=== PATIENT | male | born 1965 | race Caucasian/White ===

== ENCOUNTER → 2016-07-07 | Outpatient (CLI) | payer BC ==
--- NOTE | 2016-07-07 19:35 | PN ---
DATE OF SERVICE: 07/07/2016 This patient is a 50-year-old gentleman who has been followed in the sleep center for treatment of obstructive sleep apnea/hypopnea syndrome. Patient continues to use his equipment every night without significant problems, although he mentioned that he received nasal pillows which do not fit well to his nostrils; when he changed them, they work well. I checked his BiPAP unit. BiPAP pressure is 14/10 cm of water. Patient is using equipment basically 100% of the time for more than 4 hours; average usage 7.0 hours. Leak is up to 25 L/minute, which is acceptable. Apnea-hypopnea index is only 0.6 for the last month. [place] Sleepiness Scale is 7. MEDICATIONS: 1. Synthroid. 2. Toprol. 3. Baby aspirin. PHYSICAL EXAMINATION: Patient in no distress. VITAL SIGNS: BP 149/84, HR 76, RR 16. Height 5 feet 8 inches. Weight 271. BMI 41.3. Neck 19 inches in circumference. Temperature 98.0. Oxygen saturation at room air 98%. HEENT: PERRLA, EOMI. Evaluation of oropharynx showed tongue protrudes midline; extremely low position of soft palate. NECK: Supple. No JVD. Thyroid is not palpable. LUNGS: Clear to percussion and to auscultation. Good air exchange. No wheezing or rhonchi. HEART: S1, S2 regular. No murmurs, gallops or rubs. ABDOMEN: Obese. EXTREMITIES: No clubbing or cyanosis. FOUNTAIN SUPERVISOR: Awake, alert, and oriented x3. Cranial nerves 2 to 7 intact. There is no fasciculation or atrophy noted. No focal deficits observed. IMPRESSION: 1. Obstructive sleep apnea-hypopnea syndrome, under full control with BiPAP at 14/10 cm of water. Patient demonstrated 100% compliance with treatment, benefitting from treatment. 2. Obesity. Patient's weight has increased by 14 pounds since his previous visit. 3. Hypothyroidism. 4. Hypertension. 5. History of sinusitis. PLAN: 1. Patient will continue to use his BiPAP equipment every night for the whole night. 2. Losing weight. 3. Sleep hygiene with regular time in bed for at least 8 hours. 4. No driving if feeling any sleepiness. 5. Prescription for all necessary supplies, including mask, tube, filters. Thank you very much for allowing me to participate in the management of your patient. Sincerely, Yasir Cam MD, PhD, FAASM. Diplomat of [place], Sleep Medicine Board by [place], [place] [employer]
== END | disposition home or self-care (01) ==
LOC: SLEEP 15:12
PROVIDERS: ATTEND Internal Medicine
DX: G47.33 Obstructive sleep apnea (adult) (pediatric) (principal); E66.9 Obesity, unspecified; Z68.41 Body mass index [BMI] 40.0-44.9, adult; E03.9 Hypothyroidism, unspecified; Z79.899 Other long term (current) drug therapy

== ENCOUNTER → 2017-06-29 | Outpatient (CLI) | payer BC ==
--- NOTE | 2017-06-29 16:47 | SFUN ---
SLEEP CENTER FOLLOW UP NOTE DATE OF SERVICE: 06/29/2017. 51-year-old gentleman has been followed in Sleep Center for treatment of obstructive sleep apnea-hypopnea syndrome. The patient successfully continued to use his BiPAP equipment every night for the whole night without any significant problems. [place] Sleepiness Scale is 5. No snoring with the BiPAP. I checked BiPAP unit. Usage is 28/30 nights for more than 4 hours. Average usage 6.7 hours. Pressure is 14/10 cm of water. Leak is 26 L/minute which is acceptable. Apnea- hypopnea index reading from the machine only 0.2, which is absolutely perfect. MEDICATIONS: Synthroid, Toprol, baby aspirin. PHYSICAL EXAM: GENERAL gentleman without distress. VITAL SIGNS BP on the arm 160/89, on the right it is 144/90. HR 72, RR 16, height 5 feet 7 inches, weight 264, BMI 41.3, temperature 97.9. The patient lost 7 pounds comparing with the previous visit. HEENT PERRLA, EOMI, evaluation of oropharynx showed tongue protrudes midline. Neck Supple, no JVD. Thyroid is not palpable. LUNGS Clear to percussion and to auscultation. Good air exchange. No wheezing or rhonchi. HEART S1, S2 regular. No murmurs, gallops, or rubs. ABDOMEN Obese. Soft and nontender. Bowel sounds are present. No organomegaly appreciated. EXTREMITIES No clubbing or cyanosis. ASSISTANT DEAN OF STUDENTS Awake, alert, and oriented X3. Cranial nerves 2 to 7 intact. There is no fasciculation or atrophy. noted. No focal deficits observed. IMPRESSION: 1. Obstructive sleep apnea-hypopnea syndrome, on full control with BiPAP 14/10 cm of water. Patient demonstrated 100% compliance with treatment benefitting from treatment. 2. Obesity. Patient lost 7 pounds since previous visit. 3. Hypertension. 4. Hypothyroidism. 5. History of sinusitis. PLAN: 1. Continue treatment with CPAP every night. 2. Prescription for all necessary CPAP supplies including mask, tube, filters. 3. No driving if feeling sleepiness. 4. Continue losing weight. 5. Followup visit in 1 year. Thank you very much for allowing me to participate in management of your patient. Sincerely, Yasir Cam MD, PhD, FAASM Diplomat of [place] [employer] [place] [employer] Exchange Mechanic of [facility] [place] MMODL / JEBN: [id number] /
== END | disposition home or self-care (01) ==
LOC: SLEEP 15:18
PROVIDERS: ATTEND Internal Medicine
DX: G47.33 Obstructive sleep apnea (adult) (pediatric) (principal); E66.9 Obesity, unspecified; E03.9 Hypothyroidism, unspecified; I10 Essential (primary) hypertension; Z99.89 Dependence on other enabling machines and devices; Z79.82 Long term (current) use of aspirin; Z79.899 Other long term (current) drug therapy; Z68.41 Body mass index [BMI] 40.0-44.9, adult; Z87.09 Personal history of other diseases of the respiratory system

== ENCOUNTER → 2018-07-31 | Outpatient (CLI) | payer BC ==
--- NOTE | 2018-07-31 17:26 | PN ---
PROGRESS NOTE Franck is 53 with known history of obstructive sleep apnea. He has a severe case, with an AHI of 80, and the patient is on a BiPAP at a pressure of 14/10 cm of water. The patient is coming in for an annual check. He remains extremely compliant with his BiPAP treatment. He unfortunately continues to gain weight; he has gained around 8 pounds since his last evaluation. His weight was 264 and is currently up to 272. Based on the compliancy check, the patient has been averaging around 6.2 hours of BiPAP use per night. His BiPAP use for more than 4 hours is 29/30. Tidal volume is at 560 with a leak of 26 L/minute and AHI of 1.7 while on treatment. The treatment remains successful for now. The patient has no specific complaints otherwise. The only issue that he raised was a possible switch in his nose pillow. He is using the Comer FX nose pillow and is looking for alternatives. His weight is up by around 8 pounds. He remains extremely compliant. REVIEW OF SYSTEMS: Fourteen-point review of system was done. Positive findings are all mentioned above in the history of present illness. PHYSICAL EXAMINATION: VITAL SIGNS: BP is 144/89, pulse 80, respiratory rate 16, temperature 98.4, saturation 98% on room air. Height is 5 feet 8 inches, weight 273, Black score 4, BMI 41.5. GENERAL APPEARANCE: Calm, comfortable. HEAD: Atraumatic, normocephalic. NECK: Supple. There is no JVD. No goiter or neck masses. Mallampati class IV. LUNGS: Clear to auscultation. HEART: Heart sounds are regular rate and rhythm. Normal S1, S2. No S3, S4. No murmurs. ABDOMEN: Soft, nontender. No organomegaly. EXTREMITIES: No edema. No cyanosis or clubbing. NEUROLOGICAL: Alert and oriented x3. No focal neurological deficit. PSYCHIATRY: Negative for anxiety or depression. SKIN: Negative for any wounds or ulceration. IMPRESSION: 1. Symptomatic obstructive sleep apnea with an apnea/hypopnea index of 80, currently on BiPAP at a pressure of 14/10 cm of water using Comer FX nose pillows. The patient remains extremely compliant. 2. Obesity with a body mass index of 41.5. The patient has gained weight on the order of 8 pounds over the last one year. 3. Hypothyroidism, on Synthroid. 4. Hypertension. PLAN: 1. Encourage weight loss. 2. Implement good sleep hygiene measures. 3. Switch this patient to a DreamWear [id number] small-sized nose mask. 4. CPAP supplies were renewed. 5. Settings were checked. The patient is doing extremely well. He is very compliant and his treatment is successful. AHI is down to 1.7. Continue treatment and see me back in a year's time in followup, earlier if needed. MMODL / IJN: [id number] /
== END | disposition home or self-care (01) ==
LOC: SLEEP 14:58
PROVIDERS: ATTEND Internal Medicine
DX: G47.33 Obstructive sleep apnea (adult) (pediatric) (principal); E66.9 Obesity, unspecified; E03.9 Hypothyroidism, unspecified; I10 Essential (primary) hypertension; Z79.890 Hormone replacement therapy; Z99.89 Dependence on other enabling machines and devices; Z68.41 Body mass index [BMI] 40.0-44.9, adult

== ENCOUNTER → 2018-12-24 | Outpatient (CLI) | payer BC ==
[2018-12-24 17:39] LABS: Basophils % (A) 0 %; Eosinophils # (A) 0.1 k/uL (0-0.7); Eosinophils % (A) 2 %; HCT 45.4 % (39.0-53.0); HGB 15.5 gm/dL (13.0-17.5); Lymphocytes # (A) 1.8 k/uL (1.0-4.8); Lymphocytes % (A) 29 %; MCH 30.6 pg (25.0-35.0); MCHC 34.1 g/dL (31.0-37.0); MCV 89.6 fL (80.0-100.0); Mean Platelet Volume 8.3; Monocytes # (A) 0.4 k/uL (0-1.0); Monocytes % (A) 6 %; Neutrophils # (A) 3.7 k/uL (1.3-7.7); Neutrophils % (A) 60 %; Platelet Count 192 k/uL (150-450); RBC 5.07 m/uL (4.30-5.90); RDW 12.9 % (11.5-15.5); WBC 6.1 k/uL (3.8-10.6)
[2018-12-25 01:03] LABS: African American GFR (CKD) 100.6 (60.0-200.0); Albumin 4.7 g/dL (3.80-4.90); Albumin/Globulin Ratio 2.61 (1.60-3.17); Anion Gap 11.7 mmol/L (4.00-12.00); Calcium 9.3 mg/dL (8.7-10.3); Carbon Dioxide 26.3 mmol/L (21.6-31.8); Chol/HDL Ratio 4.86; Globulin 1.8 g/dL (1.6-3.3); LDL Cholesterol,Calculated 110.2 mg/dL (0.0-131.0); Potassium 4.2 mmol/L (3.5-5.5); Total Bilirubin 1.7 mg/dL (0.2-1.2); Total Protein 6.5 g/dL (6.2-8.2); VLDL Calculation 28.8 mg/dL (5.00-40.00)
== END | disposition home or self-care (01) ==
LOC: LABWHC1 16:19
PROVIDERS: ATTEND Internal Medicine
DX: E78.2 Mixed hyperlipidemia (principal); E03.9 Hypothyroidism, unspecified; Z12.5 Encounter for screening for malignant neoplasm of prostate
CPT/HCPCS: 36415; 80053; 80061; 84153; 84443; 85025

== ENCOUNTER → 2021-02-10 | Outpatient (CLI) | payer BC ==
--- NOTE | 2021-02-10 18:54 | SFUN ---
SLEEP CENTER FOLLOW UP NOTE DATE OF SERVICE: 02/10/2021 55-year-old gentleman has been followed in Sleep Center for treatment of obstructive sleep apnea-hypopnea syndrome. I saw the patient in the middle of 2018 and then the patient was seen once by Dr. Cartagena. The patient continues to use his CPAP equipment every night for the whole night. Does not have any problems with the BiPAP machine. No snoring. [place] Sleepiness Scale today is 3 which is normal. I checked his BiPAP unit, pressure 15/10, usage 29/30 nights and 28/30 nights more than 4 hours, average 6.7 hours per night. Leak is 25 L/minute which is borderline but apnea- hypopnea index is only 0.4 which is absolutely perfect. MEDICATIONS: Toprol, Synthroid, aspirin. PHYSICAL EXAMINATION: GENERAL: Patient in no distress. BP 164/87, HR 56, RR 16, height 5 feet 8 inches, weight 273.2 pounds, body mass index 41.5, temperature 97. Oxygen saturation at room air 99%. Oropharynx: Extremely low position of soft palate, Mallampati 4. NECK: Supple, no JVD. Thyroid is not palpable. LUNGS: Clear to percussion and to auscultation. Good air exchange. No wheezing or rhonchi. HEART: S1, S2 regular. No murmurs, gallops, or rubs. ABDOMEN: Soft and nontender. Bowel sounds are present. No organomegaly appreciated. EXTREMITIES: No clubbing or cyanosis. SPORTS PHOTOGRAPHER: Awake, alert, and oriented X3. Cranial nerves 2 to 7 intact. There is no fasciculation or atrophy. noted. No focal deficits observed. IMPRESSION: 1. Obstructive sleep apnea-hypopnea syndrome on full control with BiPAP. The patient demonstrated close to 100% compliance with treatment benefitting from treatment. 2. Obesity. 3. Hypothyroidism. 4. Hypertension. 5. History of sinusitis. PLAN: 1. Patient will continue to use PAP equipment every night for the whole night. 2. Sleep hygiene with regular time in bed for at least 7-1/2 to 8 hours. 3. Precautions related to driving. No driving if feeling sleepiness. 4. I will maintain all necessary prescription for PAP supplies including mask, tube, filters. 5. Watching weight. 6. Follow-up visit in 6 months or earlier if patient has any problems. Thank you very much for allowing me to participate in management of your patient. Sincerely, Yasir Cam MD, PhD, FAASM Diplomat of [place] Sleep Medicine Board of [place] Medicine Photoengraving Etcher Apprentice of [facility] [place] ERIKA / LAUREN: [id number] /
== END ==
LOC: SLEEP 15:07
PROVIDERS: ATTEND Internal Medicine
DX: G47.33 Obstructive sleep apnea (adult) (pediatric) (principal); E66.9 Obesity, unspecified; E03.9 Hypothyroidism, unspecified; I10 Essential (primary) hypertension; Z87.09 Personal history of other diseases of the respiratory system; Z68.41 Body mass index [BMI] 40.0-44.9, adult; Z79.890 Hormone replacement therapy

== ENCOUNTER → 2022-03-14 | Outpatient (CLI) | payer BC ==
--- NOTE | 2022-03-14 13:14 | XR ---
EXAMINATION TYPE: XR KUB DATE OF EXAM: 03/14/2022 12:59 PM CLINICAL HISTORY: Left posterior flank pain. No history of kidney stones. TECHNIQUE: Supine KUB images of the abdomen are obtained. COMPARISON: None. FINDINGS: There is moderate gas and stool throughout the colon. There is no visceromegaly, pneumoperi toneum, or abnormal calcification appreciated. The lung bases are only partially visualized. There ar e facet degenerative changes of the lower lumbosacral spine. IMPRESSION: No suspicious calcifications. Moderate stool throughout the colon.
== END | disposition home or self-care (01) ==
LOC: RADXRMAIN 12:43
PROVIDERS: ATTEND Nurse Practitioner Family
DX: R10.9 Unspecified abdominal pain (principal)
CPT/HCPCS: 74018

== ENCOUNTER → 2023-06-28 | Outpatient (CLI) | payer BC ==
[2023-06-28 15:15] VITALS: BP 146/67; PULSE 66; RESP 16; TEMP 97.9
--- NOTE | 2023-07-05 17:10 | P.PN ---
Subjective DATE: 06/28/2023 FOLLOW UP VISIT. Patient with obstructive sleep apnea hypopnea syndrome return to sleep center for follow-up visit. Information from previous visit have been reviewed. Patient is using BPAP equipment every night for the whole night, getting BPAP supplies in time. The patient does not have significant problems with the mask, BPAP unit and humidification. [place] sleepiness scale is, which is normal2. I checked information from BPAP unit. BPAP unit pressure 15/10 cm H2O. Usage is 100% for more then 4 hours, average 7.9 hours per night. Leak is 8 l/m, which is in acceptable range. Apnea Hypopnea Index is 2.0, which is normal. BiPAP unit is old, heated humidifier does not work MEDICATIONS:1. Synthroid 75 mcg once a day 2. Metoprolol 25 mg once a day 3. Metformin 500 mg twice a day 4. Hydrochlorothiazide once a day During physical exam: GENERAL: A pleasant patient without any distress. VITAL SIGNS: Please see below, weight 273.4 pounds. HEENT: PERRLA, EOMI.low position of soft palate, Mallapati 4 . NECK: Supple. No JVD. LUNGS: Clear to percussion and to auscultation. Good air exchange. No wheezing or rhonchi. HEART: S1, S2 regular. ABDOMEN: Soft and nontender.[] EXTREMITIES: No clubbing or cyanosis. POLISHER EYEGLASS FRAMES: Awake, alert, and oriented x3. No focal deficit. Impressions: 1. Obstructive sleep apnea-hypopnea syndrome. Patient demonstrated great compliance with treatment, benefiting from treatment. 2. Hypothyroidism. 3. Hypertension. 4. History of sinus problems. 5. Obesity. Plan: 1. Continue using BPAP equipment every night for the whole night. Prescription to replace BiPAP unit. Heated humidifier does not work well, unit is old. 2. To change air filter at least 1-2 times per month. 3. PAP unit should stay lower then position of the head. 4. Advised patient to remove all remaining water from humidifier canister daily and make it dry after each usage. Refill canister with fresh distilled water before each usage. 5. Sleep hygiene with regular time in bed for at least 8 hours. 6. Precautions related to driving. No driving if feel any sleepiness. 7. I will maintain prescription for PAP supplies including mask, tube, filters. 8. Follow up visit in 1-3 months after patient will get new BPAP unit. 9. Watching and losing weight. Thank you very much for allowing me to participate in the management of your patient. Yasir Cam MD, PhD, FAASM. Diplomat of [place] [employer] Medicine, Sleep Medicine Board by [place] Hospital Fellow of [facility] [place] Objective - Vital Signs Vital signs: Vital Signs Temp 97.9 F 06/28/23 14:53 Pulse 66 06/28/23 14:53 Resp 16 06/28/23 14:53 BP 146/67 06/28/23 14:53 Pulse Ox 99 06/28/23 14:53 FiO2 Intake & Output 06/27/23 06/28/23 06/28/23 18:59 06:59 18:59 Weight 123.944 kg
== END ==
LOC: 3 N SLEEP 14:27
PROVIDERS: ATTEND Internal Medicine
DX: G47.33 Obstructive sleep apnea (adult) (pediatric) (principal); E03.9 Hypothyroidism, unspecified; I10 Essential (primary) hypertension; E66.9 Obesity, unspecified; Z99.89 Dependence on other enabling machines and devices; Z87.09 Personal history of other diseases of the respiratory system; Z79.899 Other long term (current) drug therapy; Z79.890 Hormone replacement therapy
CPT/HCPCS: 99212

== ENCOUNTER 2023-07-31 07:14 | Day surgery (SDC) | payer BC ==
[~2023-07-31 07:14] MED LIST: HYDROmorphone 0.5 MG/0.5 ML SYRINGE IVP PRN; LIDOCAINE 1% (10MG/ML) FOR IV START INTRADERMA PRN; Pre Op ABX Message 1 EACH MISC MISCELLANE ONE; droPERidol 5 MG/2 ML VIAL IVP ONE
[2023-07-31] MEDS: IV FLUID CONTINUATION 1,000 ML IV ONE ×2 (07:23→09:28)
[2023-07-31 07:50] LABS: Glucose,Whole Blood 144 mg/dL (70-110)
[2023-07-31] MEDS: ONDANSETRON 4 MG/2 ML VIAL IVP ONE (08:21)
[2023-07-31] MEDS: LACTATED RINGERS 1,000 ML IV SCH (08:22)
[2023-07-31] MEDS: DEXAMETHASONE SOD PHOSPHATE 4 MG/ML 1 ML VIAL IVP STA (08:22)
[2023-07-31] MEDS ORDERED: PROPOFOL 10 MG/ML 20 ML VIAL IV ONE (08:34)
[2023-07-31] MEDS ORDERED: fentaNYL (PF) 50 MCG/ML 2 ML AMP ONE (08:34)
[2023-07-31] MEDS ORDERED: HYDROmorphone (PF) 1 MG/ML ONE (08:34)
[2023-07-31] MEDS ORDERED: KETOROLAC 15 MG/ML 1 ML VIAL ONE (08:34)
[2023-07-31] MEDS ORDERED: MIDAZOLAM 2 MG/2 ML VIAL ONE (08:34)
[2023-07-31] MEDS ORDERED: SUCCINYLCHOLINE CHLORIDE 200 MG/10 ML VIAL IV ONE (08:34)
[2023-07-31 09:03] LABS: HCT 44.5 % (39.0-53.0); HGB 14.4 gm/dL (13.0-17.5); MCHC 32.3 g/dL (31.0-37.0); MCV 92.9 fL (80.0-100.0); Mean Platelet Volume 10.1; Platelet Count 164 k/uL (150-450); RBC 4.79 m/uL (4.30-5.90); RDW 13.1 % (11.5-15.5); WBC 5.2 k/uL (3.8-10.6)
[2023-07-31 09:09] LABS: African American GFR (CKD) >90 (>60 ml/min/1.73 sqM); Anion Gap 4 mmol/L; Blood Urea Nitrogen 15 mg/dL (9-20); Calcium 8.8 mg/dL (8.4-10.2); Carbon Dioxide 29 mmol/L (22-30); Chloride 107 mmol/L (98-107); Glucose 143 mg/dL (74-99); Non-African American GFR(CKD) >90 (>60 ml/min/1.73 sqM); Potassium 4.4 mmol/L (3.5-5.1); Sodium 140 mmol/L (137-145)
[2023-07-31] MEDS: LIDOCAINE 1%-EPI 1:100,000 20 ML VIAL SQ ONE (09:11)
[2023-07-31 09:33] VITALS: TEMP 97.1
[2023-07-31 10:27] VITALS: RESP 18
[2023-07-31 10:29] VITALS: BP 142/81; PULSE 83
--- NOTE | 2023-07-31 17:08 | P.OP ---
Date of Procedure: 07/31/23 Preoperative Diagnosis: anal fistula Perirectal abscess Postoperative Diagnosis: anal fistula Procedure(s) Performed: excision of anal fistula Anesthesia: BINU Surgeon: Herve Nicolas Estimated Blood Loss (ml): 5 Pathology: none sent Condition: stable Disposition: PACU Description of Procedure: the patient's placed in the prone jackknife position. He had received general anesthesia. His rectum was prepped and draped in sterile fashion. The patient had a chronic perirectal abscess located at the 7 o'clock position. The abscess tract was probed with the rectal probe. An official was found. The fissure was unroofed. The fistula was superficial to the sphincter. The wounds for hemostasis. There is no bleeding seen. Left cautery used to unroofed the fistula. The anus was anesthetized 1% local Xylocaine. Patient tolerated procedure well. He was sent to recovery room stable condition.
== END 2023-07-31 11:06 | disposition home or self-care (01) ==
LOC: OR 07:14
PROVIDERS: ATTEND Surgery
DX: K61.1 Rectal abscess (principal); I10 Essential (primary) hypertension; G47.33 Obstructive sleep apnea (adult) (pediatric); E11.9 Type 2 diabetes mellitus without complications; E05.90 Thyrotoxicosis, unspecified without thyrotoxic crisis or storm; Z88.1 Allergy status to other antibiotic agents; Z87.891 Personal history of nicotine dependence; Z79.84 Long term (current) use of oral hypoglycemic drugs; Z79.890 Hormone replacement therapy; Z79.899 Other long term (current) drug therapy; Z79.82 Long term (current) use of aspirin
CPT/HCPCS: 80048; 85027; 46270; J2250; J0330; J1100; J2405; J3010; J1170; J1885; J2704

== ENCOUNTER → 2024-01-31 | Outpatient (CLI) | payer BC ==
[2024-01-31 16:59] VITALS: BP 149/83; PULSE 65; RESP 16; TEMP 97.4
--- NOTE | 2024-01-31 17:37 | P.PROGSL ---
Subjective DATE: 01/31/2024 FOLLOW UP VISIT. Patient with obstructive sleep apnea hypopnea syndrome return to sleep center for follow-up visit. This is first visit after patient received new BiPAP unit. Information from previous visit have been reviewed. Patient is using PAP equipment every night for the whole night, getting PAP supplies in time. The patient does not have significant problems with the mask, PAP unit and humidification. [place] sleepiness scale is 5, which is normal. I checked information from PAP unit. PAP unit pressure 15/10 cm H2O. Usage is 100% for more then 4 hours, average 7 hours per night. Leak is significantly increased to 55 l/m. Patient is using nasal pillows, possibly opens his mouth. Apnea Hypopnea Index is perfect 1.3. MEDICATIONS: Metoprolol once a day, metformin twice a day, Synthroid once a day, baby aspirin, Ozempic once a week. During physical exam: GENERAL: A pleasant patient without any distress. VITAL SIGNS: Please see below, weight is 247.2 lbs. HEENT: PERRLA, EOMI.low position of soft palate, Mallapati 4 . NECK: Supple. No JVD. LUNGS: Clear to percussion and to auscultation. Good air exchange. No wheezing or rhonchi. HEART: S1, S2 regular. ABDOMEN: Soft and nontender.[] EXTREMITIES: No clubbing or cyanosis. CUSTODIAL MAINTENANCE WORKER: Awake, alert, and oriented x3. No focal deficit. Impressions: 1. Obstructive sleep apnea-hypopnea syndrome. Patient demonstrated great compliance with treatment, benefiting from treatment. 2. Obesity, BMI 38.6, patient lost 26 pounds comparing with previous visit. 3. Hypertension. 4. Hypothyroidism. 5. History of sinus problems. Plan: 1. Continue using PAP equipment every night for the whole night. 2. Sleep hygiene with regular time in bed for at least 7.5-8 hours 3. Patient will try to use chinstrap. 4. Advised patient to remove all remaining water from humidifier canister daily and make it dry after each usage. Refill canister with fresh distilled water before each usage. 5. Watching weight. 6. Precautions related to driving. No driving if feel any sleepiness. 7. I will maintain prescription for PAP supplies including mask, tube, filters. 8. Follow up visit in 8 months or earlier if patient has any problems. Thank you very much for allowing me to participate in the management of your patient. Yasir Cam MD, PhD, FAASM. Diplomat of [place] [employer], Sleep Medicine Board by [place] [employer] Drilling Machine Operator of [facility] [place] Objective - Vital Signs Vital Signs: Vital Signs Temp 97.4 F L 01/31/24 16:58 Pulse 65 01/31/24 16:58 Resp 16 01/31/24 16:58 BP 149/83 01/31/24 16:58 Pulse Ox 99 01/31/24 16:58 FiO2 Intake & Output 01/30/24 01/31/24 01/31/24 18:59 06:59 18:59 Weight 112.094 kg Home Medications: Home Medications Medication Instructions Recorded Confirmed Type Aspirin [Adult Low Dose Aspirin EC] 81 mg PO DAILY 07/27/23 07/31/23 History Irbesartan 300 mg PO QAM 07/27/23 07/31/23 History Levothyroxine Sodium [Synthroid] 75 mcg PO QAM 07/27/23 07/31/23 History Metoprolol Succinate [Metoprolol 25 mg PO HS 07/27/23 07/31/23 History Succinate ER] Vitamin B Complex 1 cap PO DAILY 07/27/23 07/31/23 History hydroCHLOROthiazide 12.5 mg PO QAM 07/27/23 07/31/23 History metFORMIN HCL 500 mg PO BID 07/27/23 07/31/23 History Acetaminophen Tab [Tylenol] 650 mg PO Q6H #30 tab 07/31/23 Rx Docusate [Colace] 100 mg PO BID #20 capsule 07/31/23 Rx Ibuprofen [Motrin] 600 mg PO Q6HR PRN #40 tab 07/31/23 Rx oxyCODONE HCL [OxyIR] 5 mg PO Q6H PRN 3 Days #10 tab 07/31/23 Rx oxyCODONE HCL [OxyIR] 5 mg PO Q6H PRN 3 Days #15 tab 07/31/23 Rx
== END ==
LOC: 3 N SLEEP 16:35
PROVIDERS: ATTEND Internal Medicine
DX: G47.33 Obstructive sleep apnea (adult) (pediatric) (principal); E66.9 Obesity, unspecified; Z68.38 Body mass index [BMI] 38.0-38.9, adult; I10 Essential (primary) hypertension; E03.9 Hypothyroidism, unspecified; Z87.09 Personal history of other diseases of the respiratory system; Z99.89 Dependence on other enabling machines and devices; Z88.1 Allergy status to other antibiotic agents
CPT/HCPCS: 99212